=== PATIENT | male | born 1955 | race American Indian/Alaskan Native ===

== ENCOUNTER 2017-08-07 10:15 | Outpatient (CLI) | payer OTHER ==
--- NOTE | 2017-08-07 11:19 | XRay Report ---
Right shoulder: Pain. AP and Y view images demonstrate normal alignment of the shoulder joint with good preservation of the articular surfaces and joint spaces. Normal sub-acromial space. Normal bone mineralization. Impression: Normal exam.
== END 2017-08-07 10:16 | disposition home or self-care (01) ==
LOC: SPVIMAG 10:15
PROVIDERS: ATTEND Physical Medicine & Rehabilitation
DX: M25.511 Pain in right shoulder (principal)

== ENCOUNTER 2021-10-12 12:55 | Outpatient (CLI) | payer BC ==
--- NOTE | 2021-10-12 15:57 | Fluoroscopy Report ---
BARIUM SWALLOW Indication: R13.10. Dysphagia with solids and liquids Technique: Single and double contrast barium technique utilized to evaluate the esophagus. FINDINGS: To begin the exam, swallowing was evaluated in the lateral position under direct fluorosco py. Swallowing was normal. No mucosal irregularity, mass, mass effect, or critical stenosis. Occasional tertiary contractions were witnessed in the mid to distal esophagus consistent with mild esophageal dysmotility. No hiatal hernia or reflux was witnessed during this exam. The patient was able to ingest and pass a barium tab let without difficulty. IMPRESSION: Mild esophageal dysmotility. Fluoroscopic time: 2.0 minutes Number of fluoroscopic images: 15 Signer Name: Bhanu Suazo Jr, MD Signed: 10/12/2021 3:52 PM Workstation Name: [id number]
== END 2021-10-12 12:56 | disposition home or self-care (01) ==
LOC: FLUORO 12:55
PROVIDERS: ATTEND Specialist
DX: R13.10 Dysphagia, unspecified (principal)
CPT/HCPCS: 74220